=== PATIENT | female | born 1995 | race Hispanic/Latino ===

== ENCOUNTER 2017-10-10 01:01 | Day surgery (SDC) | payer BC ==
[2017-10-10 01:29] VITALS: BP 169/99; TEMP 98.9; BMI 42.8
[2017-10-10 02:09] LABS: Bilirubin Negative (Negative); Blood, Urine Negative (Negative); Clarity CLEAR (Clear); Glucose, Urine (Dipstick) Negative (Negative); Leukocyte Negative (Negative); Nitrite Negative (Negative); Protein, Urine (Dipstick) Negative (Neg-Trace); Specific Gravity, Urine 1.011 (1.002-1.036); pH, Urine 6.5 (5.0-9.0)
[2017-10-10 02:24] LABS: #Basophils 0.1 thou/uL (0.0-0.2); #Eosinphils 0.1 thou/uL (0.0-0.7); #Monocytes 0.6 thou/uL (0.11-0.59); #Neutrophils 7.1 thou/uL (1.40-6.50); %Basophils 0.7 % (0.0-1.0); %Eosinophils 1.1 % (0.0-10.0); %Lymphocytes 27.7 % (21.0-51.0); %Monocytes 5.8 % (0.0-10.0); %Neutrophils 64.8 % (42.0-75.0); Mean Corpuscular HGB CONC 34.4 g/dL (32.0-36.0); Mean Corpuscular Hemoglobin 29.6 pg (27.0-31.0); Mean Corpuscular Volume 85.9 fL (78.0-98.0); Mean Platelet Volume 7.9 fL (7.4-10.4); Platelet Count 260 thou/uL (130-400); RBC Distribution Width 11.7 % (11.5-14.5); Red Blood Cell (RBC) Count 4.05 mill/uL (4.20-5.40); White Blood Cell (WBC) Count 10.9 thou/uL (4.8-10.8)
[2017-10-10 02:45] LABS: ALT (SGPT) 23 U/L (8-55); AST (SGOT) 19 U/L (5-34); Albumin 3.4 g/dL (3.5-5.0); Alkaline Phosphatase 122 U/L (40-150); Anion Gap 12 mmol/L (10-20); BUN (Urea Nitrogen) 5 mg/dL (7.0-18.7); Bilirubin, Total 0.2 mg/dL (0.2-1.2); Calc. Creatinine Clearance 218 mL/min (70-130); Calcium 9.7 mg/dL (7.8-10.44); Carbon Dioxide 23 mmol/L (22-29); Chloride 106 mmol/L (98-107); Estimated GFR-MDRD Greater than 90; Globulin 3.4 g/dL (2.4-3.5); Glucose 104 mg/dL (70-105); Potassium 4.4 mmol/L (3.5-5.1); Protein, Total 6.8 g/dL (6.0-8.3); Sodium 137 mmol/L (136-145)
--- NOTE | 2017-10-10 03:39 | SS ---
OB TRIAGE NOTE DATE OF EVALUATION: 10/10/2017 REGULAR PHYSICIAN: Denise Mccloud M.D. EVALUATING PHYSICIAN: Pierce Christina M.D. CHIEF COMPLAINT: Elevated blood pressures at home. HISTORY OF PRESENT ILLNESS: Ms. Oliveros is a 22-year-old , G1, P0, with an estimated date of c onfinement of 11/27/2017, who presents complaining of swelling of her hands and feet over the last 24 hours. She denies visual changes, headaches or right upper quadrant pain. She states that she had her father's blood pressure cuff at home and took her blood pressures there and they were elevated. Her care has been uncomplicated so far with Dr. Mccloud. PAST MEDICAL HISTORY: Unremarkable. PAST SURGICAL HISTORY: None. CURRENT MEDICATIONS: vitamins. ALLERGIES: No known allergies. SOCIAL HISTORY: Denies tobacco or alcohol use. FAMILY HISTORY: Denies gynecologic malignancy. REVIEW OF SYSTEMS: She denies headache, visual change, right upper quadrant pain, vaginal bleeding o r leakage of fluid. PHYSICAL EXAMINATION: VITAL SIGNS: Initial blood pressures here are 166/99 and 157/93. It was repeated with a second cuff and was then 144/95. ABDOMEN: Soft, nontender and gravid. PELVIC: Pelvic examination is deferred. heart tones are stable. No decelerations are seen. No uterine contractions are seen. LABORATORY DATA: White count 10.9, hemoglobin and hematocrit 12.0 and 34.8, platelets are 260,000. Creatinine 0.6. AST and ALT are 19 and 23 respectively. On urinalysis specific gravity is 1.011, no protein, no glucose, no nitrites and no bilirubin are seen. Blood pressures are repeated and most recent blood pressure is 138/84. ASSESSMENT: 1. A 33 and 1/7 week intrauterine . 2. No evidence of severe PIH at this time. PLAN: The patient will be discharged home to bed rest. She is told to contact Dr. Mccloud regarding her visit here today. Signs and symptoms of preeclampsia have been reviewed with her in detail, and she should return to labor and delivery should she experience these.
== END 2017-10-10 03:05 | disposition home or self-care (01) ==
LOC: L&D/OP 01:01
PROVIDERS: ATTEND Student in an Organized Health Care Education/Training Program
DX: O99.89 Other specified diseases and conditions complicating pregnancy, childbirth and the puerperium (principal); R03.0 Elevated blood-pressure reading, without diagnosis of hypertension; Z3A.33 33 weeks gestation of pregnancy
CPT/HCPCS: 36415; 80053; 81003; 85025; 99283

== ENCOUNTER 2017-11-01 19:40 | Inpatient (IN) | payer BC, MEDICAID ==
[2017-11-01 20:15] VITALS: BMI 43.4
[2017-11-01 20:52] LABS: #Eosinphils 0.1 thou/uL (0.0-0.7); #Lymphocytes 3.2 thou/uL (1.20-3.40); #Monocytes 0.7 thou/uL (0.11-0.59); #Neutrophils 7.6 thou/uL (1.40-6.50); %Basophils 0.2 % (0.0-1.0); %Eosinophils 0.8 % (0.0-10.0); %Lymphocytes 27.7 % (21.0-51.0); %Neutrophils 65.3 % (42.0-75.0); Hemoglobin 12.1 g/dL (12.0-16.0); Mean Corpuscular HGB CONC 35.9 g/dL (32.0-36.0); Mean Corpuscular Hemoglobin 30.7 pg (27.0-31.0); Mean Corpuscular Volume 85.7 fL (78.0-98.0); Mean Platelet Volume 8.6 fL (7.4-10.4); Platelet Count 228 thou/uL (130-400); RBC Distribution Width 12.2 % (11.5-14.5); Red Blood Cell (RBC) Count 3.93 mill/uL (4.20-5.40); White Blood Cell (WBC) Count 11.6 thou/uL (4.8-10.8)
[2017-11-01 21:13] LABS: ALT (SGPT) 26 U/L (8-55); AST (SGOT) 23 U/L (5-34); Albumin 3.4 g/dL (3.5-5.0); Alkaline Phosphatase 172 U/L (40-150); Anion Gap 12 mmol/L (10-20); BUN (Urea Nitrogen) 10 mg/dL (7.0-18.7); Bilirubin, Total 0.2 mg/dL (0.2-1.2); Calc. Creatinine Clearance 201 mL/min (70-130); Calcium 8.9 mg/dL (7.8-10.44); Carbon Dioxide 20 mmol/L (22-29); Chloride 106 mmol/L (98-107); Estimated GFR-MDRD Greater than 90; Globulin 3.3 g/dL (2.4-3.5); Glucose 85 mg/dL (70-105); Potassium 3.9 mmol/L (3.5-5.1); Protein, Total 6.7 g/dL (6.0-8.3); Sodium 134 mmol/L (136-145)
[2017-11-01 21:42] LABS: Bilirubin Negative (Negative); Blood, Urine Negative (Negative); Clarity CLOUDY (Clear); Glucose, Urine (Dipstick) Negative (Negative); Leukocyte Small (Negative); Nitrite Negative (Negative); Protein, Urine (Dipstick) Negative (Neg-Trace); Specific Gravity, Urine 1.012 (1.002-1.036); Urobilinogen 0.2 mg/dL (0.2-1.0)
[2017-11-01 21:44] LABS: Bacteria/HPF 1+ HPF (None Seen); Hyaline Casts/LPF 0-3 HYALINE CAST LPF (0-3 Hyaline); Pathc Cast-AUWi Flag 0.29 (0-2.49); RBC/HPF 0-3 HPF (0-3)
[2017-11-01] MEDS ORDERED: Calcium Gluc 4.6 MEQ/10 ML (100 MG/ML) SLOW IVP PRN (22:23)
[2017-11-01] MEDS ORDERED: Promethazine HCl 25 MG/ML VIAL IM PRN (22:23)
[2017-11-01] MEDS ORDERED: NS / Oxytocin 40 units/1000ml 1,000 ML IV PRN (22:23)
[2017-11-01] MEDS ORDERED: Ondansetron HCl/PF 4 MG/2 ML Vial IVP PRN (22:23)
[2017-11-01] MEDS ORDERED: Lidocaine 1% (PF) 30 ML VIAL SC PRN (22:23)
[2017-11-01] MEDS ORDERED: Zolpidem Tartrate 5 MG TAB PO PRN (22:23)
[2017-11-01] MEDS ORDERED: HYDROcodone/Acetaminophen 5/325 mg Tablet PO PRN ×2 (22:23)
[2017-11-01] MEDS ORDERED: Ibuprofen 800 MG TAB PO PRN (22:23)
[2017-11-01] MEDS ORDERED: Betamet Acet/Betamet Na Ph 30 MG/5 ML VIAL ONE (22:28)
[2017-11-01] MEDS ORDERED: Penicillin G Potassium 5 MILL.UNITS in Sodium Chloride 0.9% 100 ML IVPB SCH (22:30)
[2017-11-01] MEDS ORDERED: Magnesium Sulfate 20 GM/WATER 500 ML BAG IVPB SCH (22:30)
[2017-11-01] MEDS ORDERED: NS w/ Oxytocin 10 units 500 ML IV SCH (22:30)
--- NOTE | 2017-11-01 22:35 | PDOC.LDHP ---
Labor and Delivery H&P Chief complaint: other (c/o pressure) HPI: 22 yo LAF presents c/o vaginal pressure. Denies DAHL or visual changes. Current gestational age (weeks): 36 Due date: 11/27/17 Dating criteria: last menstrual period Grav: 1 Para: 0 OB History Details: PNC with Dr. Mccloud. Seen several weeks ago with elevated BP, labs were normal at that time. Current complications: none Abnormal US findings: No Past Medical History: None Current medications: pre-iram vitamins Previous surgical history: none Allergies/Adverse Reactions: Allergies Allergy/AdvReac Type Severity Reaction Status Date / Time No Known Drug Allergies Allergy Verified 10/10/17 01:22 Social history: none - Physical Exam Abnormal vital signs: BP 168/106 General: NAD Heart: RRR Lungs: nonlabored breathing Abdomen: gravid Extremeties: pitting edema FHT: category 1, variability present - Vaginal Exam cm dilated: 1 Effacement: 0% Station: -2 - OB Labs Blood type: unknown RH: unknown Antibody Screen: unknown HIV: unknown RPR: unknown HEPSAg: unknown 1 hour GCT: unknown GBS: unknown - Assessment 36 and 2/7 weeks BPs c/w severe PIH Bedside USG confirms vtx, subjective decreased GENEVIEVE and grade 3 placenta Labs WNL Unfavorable cervix - Plan -: Admit to L&D. Start MgSO4 and observe. Give steroids x2, 12 hrs apart. Begin Cytotec for cervical ripening followed by Pitocin induction to follow. Discussed with Dr. Mccloud who agrees with plan.
[2017-11-01] MEDS: Lactated Ringer's 1,000 ML IV SCH (23:20)
[2017-11-01] MEDS: Betamet Acet/Betamet Na Ph 30 MG/5 ML VIAL IM SCH (23:39)
[2017-11-01] MEDS: Magnesium Sulfate 20 gm/500 ml 20 GM/500 ML BAG IVPB SCH (23:40)
[2017-11-01] MEDS: Misoprostol 100 MCG TAB VAG SCH (23:59)
[2017-11-02 00:48] LABS: HBSAg Index 0.22 S/CO (0-0.99); Hep B Surf Ag Non-Reactive S/CO (NonReactive)
[2017-11-02 01:02] LABS: Syphilis Antibody Nonreactive (Nonreactive); Syphilis Antibody Index 0.05 S/CO (<1.00 Non-Reactive)
[2017-11-02] MEDS: Butorphanol Tartrate 1 MG/ML VIAL SLOW IVP PRN ×2 (01:20→02:45)
--- NOTE | 2017-11-02 02:52 | PDOC.EVN ---
Event Note - Event Note Event Note: BPs improved on MgSO4. 1st dose Ctotec and steroids given. Stadol given per pt. request. FHTs stable, irregular UCs seen. Cont. present mgmt.
[2017-11-02] MEDS ORDERED: Penicillin G 2.5 MILL.units 2.5 MILL.UNITS in Premix Bag 1 BAG IVPB SCH (03:00)
[2017-11-02] MEDS: Misoprostol 100 MCG TAB VAG SCH ×3 (05:57→09:09)
[2017-11-02] MEDS: Magnesium Sulfate 20 gm/500 ml 20 GM/500 ML BAG IVPB SCH ×2 (08:23→22:06)
--- NOTE | 2017-11-02 11:30 | PDOC.LDPN ---
Labor & Delivery Progress Note - Subjective Subjective: painful contractions (11/18), other (no PIH sx.) - Objective Vital signs reviewed and normal: yes Abnormal vital signs: mild range blood pressures General: NAD Uterine fundus: non tender Dilation: 2 Effacement: 75% Station: -2 (arom clear) FHT: category 2, late decelerations [place] contractions every: 3min AROM: clear fluid IUPC placed: yes FSE placed: yes Resuscitative measures: maternal oxygen, maternal IV fluids, maternal position change - Assessment (1) 36 weeks gestation of Code(s): Z3A.36 - 36 WEEKS GESTATION OF Current Visit: Yes Status : Acute (2) Severe preeclampsia Code(s): O14.10 - SEVERE PRE-ECLAMPSIA, UNSPECIFIED TRIMESTER Current Visit: Yes Status: Acute Plan: pitocin for augmentation, resuscitative measures, other (cont mag for PEC and PCN for GBS, s/p BMZ x 2 doses. Plan of care discussed with pt and family.)
[2017-11-02] MEDS: Betamet Acet/Betamet Na Ph 30 MG/5 ML VIAL IM SCH (11:48)
[2017-11-02] MEDS: Lactated Ringer's 1,000 ML IV SCH ×2 (11:49→13:00)
[2017-11-02] MEDS ORDERED: Penicillin G Potassium 5 MILL.UNITS VIAL ONE (11:54)
[2017-11-02] MEDS ORDERED: Terbutaline Sulfate 1 MG/ML VIAL ONE (11:58)
[2017-11-02] MEDS ORDERED: DISCONTINUE ALL PREVIOUS NARCOTICS FS SCH (12:00)
[2017-11-02] MEDS ORDERED: Bupivacaine 0.75% 13.4 ML, fentaNYL Citrate/PF 400 MCG in Sodium Chloride 0.9% 78.6 ML EPIDURAL SCH (12:00)
[2017-11-02] MEDS ORDERED: Naloxone HCl 0.4 mg/ml Vial IVP PRN ×4 (13:23→14:26)
[2017-11-02] MEDS ORDERED: ePHEDrine/0.9% NaCl/PF SYRINGE 50 mg/10 ml SLOW IVP PRN (13:23)
[2017-11-02] MEDS ORDERED: Ondansetron HCl/PF 4 MG/2 ML Vial IVP PRN ×3 (13:23→14:26)
[2017-11-02] MEDS ORDERED: diphenhydrAMINE 50 MG/ML VIAL IVP PRN ×2 (13:23→14:26)
[2017-11-02] MEDS ORDERED: Promethazine HCl 25 MG/ML VIAL IM PRN (13:23)
[2017-11-02] MEDS ORDERED: Eucerin (Mineral Oil/Petrolatum,White) 30 gm Jar TOP PRN ×2 (13:23→14:26)
[2017-11-02] MEDS ORDERED: Acetaminophen 325 MG TAB PO PRN (13:23)
[2017-11-02] MEDS ORDERED: Lactated Ringer's 500 ML IV PRN (13:23)
[2017-11-02] MEDS ORDERED: fentaNYL Citrate/PF 400 MCG, Bupivacaine 0.5% 20 ML in Sodium Chloride 0.9% 72 ML EPIDURAL SCH (13:30)
[2017-11-02] MEDS ORDERED: Communication Order-Pharmacy FS SCH ×2 (13:30→14:30)
[2017-11-02] MEDS ORDERED: Bicitra 30 ML UDCUP ONE (14:01)
[2017-11-02] MEDS ORDERED: CEFAZOLIN/Water 2 GM/20 ML SYRINGE ONE (14:01)
[2017-11-02] MEDS ORDERED: Morphine PF 1 MG/ML SYR ONE ×3 (14:12→14:37)
[2017-11-02] MEDS ORDERED: Fentanyl 100 MCG/2 ML VIAL ONE ×2 (14:12→14:30)
[2017-11-02] MEDS ORDERED: Oxytocin 10 UNITS/ML VIAL ONE ×2 (14:13→14:39)
[2017-11-02] MEDS ORDERED: Lidocaine 2% 10 ML INJ ONE ×2 (14:14)
[2017-11-02] MEDS ORDERED: Ondansetron HCl/PF 4 MG/2 ML Vial ONE ×2 (14:19→14:32)
[2017-11-02] MEDS ORDERED: Ketorolac Tromethamine 30 MG/ML VIAL ONE ×2 (14:19→15:05)
[2017-11-02] MEDS ORDERED: Meperidine HCl/PF 25 MG/ML VIAL SLOW IVP PRN (14:25)
[2017-11-02] MEDS ORDERED: HYDROmorphone 2 MG/ML VIAL SLOW IVP PRN (14:25)
[2017-11-02] MEDS ORDERED: Naloxone HCl 0.4 mg/ml Vial IV PRN (14:26)
[2017-11-02] MEDS ORDERED: Ketorolac Tromethamine 30 MG/ML VIAL IVP PRN (14:26)
[2017-11-02] MEDS ORDERED: Ketorolac Tromethamine 30 MG/ML VIAL IVP SCH (14:30)
[2017-11-02] MEDS ORDERED: Midazolam HCl 2 mg/2 ml Vial ONE (14:30)
[2017-11-02] MEDS ORDERED: Bicitra 30 ML UDCUP PO SCH (15:00)
[2017-11-02] MEDS ORDERED: CEFAZOLIN/Water 2 GM/20 ML SYRINGE SLOW IVP SCH (15:00)
--- NOTE | 2017-11-02 15:02 | PDOC.LDPN ---
Labor & Delivery Progress Note - Subjective Subjective: comfortable - Objective Vital signs reviewed and normal: yes General: NAD Uterine fundus: non tender Dilation: 4 Effacement: 90% Station: -2 FHT: category 2, late decelerations (recurrent with > 50% of contractions, deep ) [place] contractions every: 2-5min - Assessment (1) 36 weeks gestation of Code(s): Z3A.36 - 36 WEEKS GESTATION OF Current Visit: Yes Status : Acute (2) Severe preeclampsia Code(s): O14.10 - SEVERE PRE-ECLAMPSIA, UNSPECIFIED TRIMESTER Current Visit: Yes Status: Acute Qualifiers: Trimester: third trimester Qualified Code(s): O14.13 - Severe pre-eclampsia , third trimester (3) Non-reassuring electronic monitoring tracing Code(s): O76 - ABNLT IN HEART RATE AND RHYTHM COMP LABOR AND DELIVERY Current Visit: Yes Status: Acute -: (late entry) At 1400 I was called by EDUARDO Hernandez for NRFHT, prev approx 20min earlier had just given 2nd dose of terbutaline for recurrent late decels and minimal variability, pt had received epidural that was working and maternal O2, IVF bolus and position change. Late decelerations were getting worse and decision was made to proceed to OR with stat primary CS for NRFHT.
--- NOTE | 2017-11-02 15:05 | PDOC.OPDEL ---
OB Operative/Delivery Note Delivery Dr/Surgeon: Ame Assist: Dylan Pre-Delivery Diagnosis: non-reassuring tracing (, Severe PIH, 36wk gestation) Procedure/Post Delivery Dx: primary low transverse CS (stat) Weeks gestation: 36 Anesthesia: epidural - Findings A Sex: male Weight: 6 lb 2 oz - Additional Findings/Plan Placenta delivered: spontaneous findings: low transverse hysterotomy without extension, normal uterus, normal tubes, normal ovaries Estimated blood loss: normal, final pending Post delivery plan: recovery in LICU (mag recovery)
[2017-11-02] MEDS ORDERED: Meperidine HCl/PF 25 MG/ML VIAL ONE (17:17)
--- NOTE | 2017-11-02 18:11 | PRG ---
DATE OF SERVICE: 11/02/2017 OB ER ENCOUNTER The patient is a 22-year-old female who underwent a primary for nonreassuring heart t ones. Dr. Denise Mccloud was primary surgeon and Dr. Lazaro Richardson, myself was first jitendra whitlock
--- NOTE | 2017-11-02 19:33 | OP ---
DATE OF OPERATION: 11/02/2017 PREOPERATIVE DIAGNOSES: 1. Intrauterine at 36 weeks and 3 days. 2. Severe preeclampsia. 3. Non-reassuring heart tones. POSTOPERATIVE DIAGNOSES: 1. Intrauterine at 36 weeks and 3 days. 2. Severe preeclampsia. 3. Non-reassuring heart tones. PROCEDURE: Primary low transverse section via Pfannenstiel skin incision. ANESTHESIA: Epidural. ATTENDING SURGEON: Denise Mccloud M.D. TRANSITION COACH: Dr. Nick Richardson. ESTIMATED BLOOD LOSS: Minimal. Final quantitative blood loss is pending. INTRAVENOUS FLUIDS: 1100 mL crystalloid. URINE OUTPUT: 42 of clear urine. COMPLICATIONS: None. DRAINS: De catheter. PATHOLOGY: None. FINDINGS: Male , cephalic presentation, clear amniotic fluid, Apgars are pending, weight was 6 pounds 2 ounces, body cord x1. Normal uterus, ovaries and tubes bilaterally. Hysterotomy without e xtension. OPERATIVE INDICATIONS: A 22-year-old G1, P0 at 36 weeks and 2 days, presented with pelvic pressure w as found to have severe range pressures, had workup for preeclampsia that included normal labs and no symptoms of preeclampsia. She was dispositioned for induction secondary to severe features met by merrick wray of blood pressure. She was started on magnesium for persistent severe range pressures and gi valery 2 doses of Cytotec overnight approximately 3 hours. After the second dose of Cytotec, the patien t began having intermittent late deceleration. She was resuscitated and this improved. She had mode rate variability and occasional acceleration. She was ruptured and internals were placed for improve d monitoring and the patient was axel on her own every 2-3 minutes. Shortly thereafter, the p atient began having recurrent repetitive late decelerations with every contraction and she was resusc itated and given a dose of terbutaline. She then requested an epidural, which she was able to get, t he heart tones improved after the epidural and she began having late decelerations once again. She was bolused. Her blood pressure did not drop secondary to the epidural and was given a second d ose of terbutaline. This did not help her late deceleration and they began to come deeper with minim al variability and decision at that time was made to proceed for staph . OPERATIVE TECHNIQUE: The patient was taken to the operating room where epidural anesthesia was found to be adequate. The patient was prepped and draped in a sterile fashion in the dorsal supine positi on with a leftward tilt. After ensuring adequacy of anesthesia, a Pfannenstiel skin incision was mad e and carried down to the underlying subcutaneous tissue with knife. The fascia was nicked in the mi dline with a knife and carried laterally with the Sotomayor scissors. The superior aspect of the fascia w as tented with 2 Kochers and dissected off the rectus with the Sotomayor scissors. The inferior aspect of the fascia was tented with 2 Kochers and dissected off the rectus down the pubic symphysis. The rec tus were bluntly divided in midline. The peritoneum was bluntly entered into and manually retracted. The Kavon O retractor was placed in the lower uterine segment was incised in a transverse fashion and extended with the Hills maneuver. The infant's head was brought to the hysterotomy and delivered with fundal pressure, the delayed cord clamping was performed and the infant's cord was clamped and i nfant handed to awaiting wade team. The placenta was allowed to spontaneously deliver. The uterus wa s exteriorized, cleared of all clots and debris and the posterior cul-de-sac was lapped out uterus. Placed back into the abdomen and hysterotomy was repaired with a #1 Monocryl in a running locking fas hion. A second horizontal imbricating layer was placed and excellent hemostasis was noted. Irrigati on was performed of the pelvis and suction. The Kavon O retractor was removed and the rectus muscle s were examined and noted to be hemostatic. The peritoneum was closed with a 2-0 chromic in a runnin g fashion. The fascia was repaired with #1 PDS x2 sutures with excellent reapproximation. The subcu taneous tissue was irrigated and cauterized of any bleeders and reapproximated with 2-0 plain gut in a running fashion. The skin was closed with 4-0 Monocryl in a subcuticular fashion. Dermabond was a pplied. The patient tolerated procedure well. Sponge, lap, needle count correct x2. The patient wa s taken to recovery in stable condition. Patient received Ancef 2 grams prior to procedure.
[2017-11-03] MEDS: Lactated Ringer's 1,000 ML IV SCH ×2 (02:13→17:48)
[2017-11-03] MEDS ORDERED: Acetaminophen 325 MG TAB PO PRN (07:48)
[2017-11-03] MEDS ORDERED: Bisacodyl 10 MG SUPP PR PRN (07:48)
[2017-11-03] MEDS ORDERED: HYDROcodone/Acetaminophen 5/325 mg Tablet PO PRN (07:48)
[2017-11-03] MEDS ORDERED: Simethicone Chewable 80 MG TAB PO PRN (07:48)
[2017-11-03] MEDS ORDERED: Adacel (T-DAP) 0.5 ML VIAL IM ONE (07:48)
[2017-11-03] MEDS: Ibuprofen 800 MG TAB PO SCH ×2 (08:00→16:24)
[2017-11-03] MEDS: HYDROcodone/Acetaminophen 5/325 mg Tablet PO PRN ×2 (08:45→17:05)
[2017-11-03] MEDS: Magnesium Sulfate 20 gm/500 ml 20 GM/500 ML BAG IVPB SCH (08:56)
--- NOTE | 2017-11-03 13:14 | PDOC.PP ---
Post Progress Note Post Day #: 1 PO intake tolerated: yes Flatus: no Ambulation: no Vital Signs (12 hours) Temp Pulse Resp 11/03/17 04:00 98.3 F 96 20 Weight Weight 215 lb - Physical Examination General: NAD Cardiovascular: RRR Respiratory: non-labored breathing Abdominal: no distention, appropriately TTP Fundus firm & at: umb Extremities: negative homans (B) Neurological: no gross focal deficits Psychiatric: normal affect Result Diagrams: 11/01/17 20:47 11/01/17 20:47 Additional Labs: Post Labs Blood Type AB POSITIVE 11/01/17 23:48 Hep Bs Antigen Non-Reactive S/CO (NonReactive) 11/01/17 23:48 (1) 36 weeks gestation of Code(s): Z3A.36 - 36 WEEKS GESTATION OF Status: Acute (2) Severe preeclampsia Code(s): O14.10 - SEVERE PRE-ECLAMPSIA, UNSPECIFIED TRIMESTER Status: Acute Qualifiers: Trimester: third trimester Qualified Code(s): O14.13 - Severe pre-eclampsia , third trimester (3) Non-reassuring electronic monitoring tracing Code(s): O76 - ABNLT IN HEART RATE AND RHYTHM COMP LABOR AND DELIVERY Status: Acute
[2017-11-03] MEDS: Docusate Calcium (SURFAK) 240 MG CAP PO SCH (17:17)
[2017-11-03] MEDS: Prenatal Vitamin 1 TAB PO SCH (17:17)
[2017-11-04] MEDS: HYDROcodone/Acetaminophen 5/325 mg Tablet PO PRN ×6 (00:48→23:02)
[2017-11-04] MEDS: Docusate Calcium (SURFAK) 240 MG CAP PO SCH ×3 (00:48→21:49)
[2017-11-04] MEDS: Ibuprofen 800 MG TAB PO SCH ×4 (00:49→21:50)
[2017-11-04 06:09] LABS: Hemoglobin 10.9 g/dL (12.0-16.0); Mean Corpuscular HGB CONC 33.7 g/dL (32.0-36.0); Mean Corpuscular Hemoglobin 29.4 pg (27.0-31.0); Mean Corpuscular Volume 87.3 fL (78.0-98.0); Mean Platelet Volume 8.5 fL (7.4-10.4); Platelet Count 212 thou/uL (130-400); RBC Distribution Width 12.5 % (11.5-14.5); White Blood Cell (WBC) Count 15.6 thou/uL (4.8-10.8)
--- NOTE | 2017-11-04 06:49 | PDOC.PP ---
Post Progress Note Post Day #: 2 PO intake tolerated: yes Flatus: yes Ambulation: yes Vital Signs (12 hours) Temp Pulse Resp BP 11/04/17 00:00 98.0 F 92 20 141/85 H 11/03/17 21:20 98.5 F 99 18 136/77 Weight Weight 215 lb - Physical Examination General: NAD Cardiovascular: RRR Respiratory: non-labored breathing Abdominal: no distention, appropriately TTP Fundus firm & at: umb Extremities: negative homans (B) Skin: CS incision dry & intact Neurological: no gross focal deficits Psychiatric: normal affect Result Diagrams: 11/04/17 05:24 11/01/17 20:47 Additional Labs: Post Labs Blood Type AB POSITIVE 11/01/17 23:48 Hep Bs Antigen Non-Reactive S/CO (NonReactive) 11/01/17 23:48 (1) 36 weeks gestation of Code(s): Z3A.36 - 36 WEEKS GESTATION OF Status: Acute (2) Severe preeclampsia Code(s): O14.10 - SEVERE PRE-ECLAMPSIA, UNSPECIFIED TRIMESTER Status: Acute Qualifiers: Trimester: third trimester Qualified Code(s): O14.13 - Severe pre-eclampsia , third trimester (3) Non-reassuring electronic monitoring tracing Code(s): O76 - ABNLT IN HEART RATE AND RHYTHM COMP LABOR AND DELIVERY Status: Acute - Assessment/Plan POD2 s/p PCS for NRFHT at 36w 2/2 severe PIH VSSAF PEC- s/p mag, BP nl-mild, no sx PIH, nl labs, Will start BP meds if pressures persistently elevated Mild asx anemia d/t surgical blood loss, cont PNV Appropriate postop milestones, Breastpumping, infant in NICU Rh pos RImm Cont postop care, poss home tomorrow
[2017-11-04] MEDS: Prenatal Vitamin 1 TAB PO SCH (07:07)
[2017-11-05] MEDS: Labetalol 100 MG TAB PO SCH ×5 (05:58→22:05)
[2017-11-05] MEDS: Ibuprofen 800 MG TAB PO SCH ×3 (05:59→22:06)
[2017-11-05 06:15] LABS: Hemoglobin 11.4 g/dL (12.0-16.0); Mean Corpuscular HGB CONC 34.5 g/dL (32.0-36.0); Mean Corpuscular Hemoglobin 30.5 pg (27.0-31.0); Mean Corpuscular Volume 88.5 fL (78.0-98.0); Mean Platelet Volume 8.2 fL (7.4-10.4); Platelet Count 211 thou/uL (130-400); RBC Distribution Width 12.3 % (11.5-14.5); Red Blood Cell (RBC) Count 3.73 mill/uL (4.20-5.40); White Blood Cell (WBC) Count 16.2 thou/uL (4.8-10.8)
--- NOTE | 2017-11-05 08:02 | PRG ---
DATE OF SERVICE: 11/05/2017 PRIMARY OB: Dr. Denise Mccloud. HISTORY OF PRESENT ILLNESS: The patient is postop day #3, status post a primary for non-re assuring heart tones in the setting of preeclampsia with severe features. The patient's postop erative course has been complicated by severe range blood pressures in the last 24 hours, for which h er primary OB has instituted single dose of labetalol 100 mg. The patient, otherwise, reports she is tolerating p.o., voiding on her own, having decreased lochia and good pain control. She denies head aches, chest pain, shortness of breath. OBJECTIVE: MOST RECENT VITAL SIGNS: Blood pressure is 162/98, pulse of 107, temperature 98.3, respiratory rate of 20. GENERAL: She appears to be in no acute distress. She is alert, oriented, cooperative, and pleasant to interact with. HEAD: Normocephalic, atraumatic. LUNGS: Clear to auscultation bilaterally. ABDOMEN: Her fundus is firm. Incision is clean, dry, and intact. LABORATORY STUDIES: This morning, she has a white count of 16.2, hemoglobin of 11.4, hematocrit 33.0 , platelets of 211,000. ASSESSMENT AND PLAN: The patient is a 22-year-old female postoperative day #3, status post primary C -section, who is recovering well from that standpoint; however, her severe range blood pressures over the last 24 hours will necessitate her continued care here in the hospital. I will place her on vlad eduled labetalol 200 mg twice a day and see if her blood pressures will be controlled in the next 24 hours.
[2017-11-05] MEDS: Docusate Calcium (SURFAK) 240 MG CAP PO SCH ×2 (08:37→22:06)
[2017-11-05] MEDS: Prenatal Vitamin 1 TAB PO SCH (08:37)
[2017-11-05] MEDS: HYDROcodone/Acetaminophen 5/325 mg Tablet PO PRN ×4 (08:37→22:09)
[2017-11-06] MEDS: Ibuprofen 800 MG TAB PO SCH (05:22)
[2017-11-06] MEDS: Docusate Calcium (SURFAK) 240 MG CAP PO SCH (08:44)
[2017-11-06] MEDS: HYDROcodone/Acetaminophen 5/325 mg Tablet PO PRN (08:44)
[2017-11-06] MEDS: Prenatal Vitamin 1 TAB PO SCH (08:44)
[2017-11-06] MEDS: Labetalol 100 MG TAB PO SCH (08:44)
[2017-11-06 08:46] VITALS: BP 162/85
[2017-11-06 10:43] VITALS: TEMP 98
== END 2017-11-06 13:34 | disposition home or self-care (01) | DRG 766 ==
LOC: L&D/OP 19:40 → L&D 11-02 02:00 → 3SW 11-03 17:03
PROVIDERS: ADMIT Obstetrics & Gynecology; ATTEND Student in an Organized Health Care Education/Training Program
PROC: 10D00Z1 Extraction of Products of Conception, Low, Open Approach (ICD-10-PCS; principal; 2017-11-02)
DX: O76 Abnormality in fetal heart rate and rhythm complicating labor and delivery (principal); O14.14 Severe pre-eclampsia complicating childbirth; O61.0 Failed medical induction of labor; Z3A.36 36 weeks gestation of pregnancy; Z37.0 Single live birth
CPT/HCPCS: 36415; 51702; 76815; 80053; 81003; 81015; 82805; 85025; 85027; 86780; 86850; 86900; 86901; 87340; 99285; J0595; J0702; J1885; J2175; J2250; J2274; J2310; J2405; J2540; J2590; J3010; J3105; J3475; J7050